=== PATIENT | male | born 1950 | race Caucasian/White ===

== ENCOUNTER 2019-12-11 10:54 | Emergency (ER) | payer MEDICARE, OTHER ==
[2019-12-11] MEDS ORDERED: Sodium Chloride 0.9% 10 ML Syringe FLUSH PRN (11:28)
[2019-12-11] MEDS ORDERED: Sodium Chloride 0.9% 2.5 ML Syringe FLUSH PRN (11:28)
[2019-12-11] MEDS ORDERED: Lactated Ringers 1,000 ML IV ONE (11:29)
[2019-12-11] MEDS ORDERED: Acetaminophen 500 MG Tab PO ONE (11:29)
--- NOTE | 2019-12-11 11:43 | EDM.PDOC ---
ED HPI GENERAL MEDICAL PROBLEM - General Chief Complaint: General Stated Complaint: WEAKNESS/CHILLS Time Seen by Provider: 12/11/19 11:06 Source of Information: Reports: Patient, Old Records History Limitations: Reports: No Limitations - History of Present Illness INITIAL COMMENTS - FREE TEXT/NARRATIVE: This is a very pleasant 69-year-old male with a past medical history of hype rtension presenting with infectious symptoms. Patient underwent cataract surgery on 12/05/2019. On the morning of 12/05, patient began developing chills, myalgias, and subjective fevers along with fatigue. About 4 days ago, the patient developed pain to the left forearm and an area of redness over the dorsal surface of the left wrist. He did not have an IV placed there and denies any recent wounds or trauma to the area. Also complains of a sore throat. He continues to feel unwell and had a COVID swab performed 2 days ago which has not resulted yet. He has had multiple episodes of close contact with a friend who was diagnosed with COVID. He denies headache, neck stiffness, chest pain, shortness of breath, cough, hemoptysis, abdominal pain, nausea, vomiting, diarrhea, dysuria, flank pain, lower extremity pain or swelling, or history of prior VTE. ROS: A 10-point review of systems was negative, except as noted in the HPI (or in the ROS section of this note). Past medical history: Reviewed, no additional pertinent history. Surgical history: Reviewed in system, no additional pertinent history. Social history: Reviewed in system, no additional pertinent history. Family history: Reviewed in system, no additional pertinent history. PHYSICAL EXAM Vital signs reviewed. Nursing notes reviewed. Constitutional: Awake, alert, non-distressed. Head: Normocephalic, atraumatic. Eyes: EOMI, conjunctiva normal, no discharge, no scleral icterus. Ears, Nose, Throat: External ears and nose normal, moist oral mucosa. Neck: Supple, full range of motion. No meningeal signs. Cardiovascular: Tachycardic, 2+ radial pulse, capillary refill less than 2 seconds. Pulmonary: normal work of breathing, no accessory muscle use. Abdomen/GI: Soft, nontender, nondistended, no guarding or rigidity, no masses. No CVA tenderness. Musculoskeletal: No deformities. The dorsal surface of the left wrist is erythematous and tender, concerning for cellulitis. No effusion noted to the left wrist. Integumentary: Appropriate color for ethnicity, warm, dry, no pallor or jaundice, no rash. Neurologic: Alert, answering questions appropriately, normal speech, no facial droop, moving all extremities well. Psychiatric: Appropriate mood and affect, normal thought process. left wrist to left elbow area Pain Score (Numeric/FACES): 8 - Related Data Allergies Allergy/AdvReac Type Severity Reaction Status Date / Time No Known Allergies Allergy Verified 12/11/19 11:10 Home Meds: Home Meds Acetaminophen [Acetaminophen Extra Strength] 500 - 1,000 mg PO Q6H PRN #30 tablet 12/11/19 [Rx] Naproxen 1 - 2 tab PO DAILY PRN 12/11/19 [History] cephALEXin [Keflex] 500 mg PO QID 7 Days #28 capsule 12/11/19 [Rx] lisinopriL [Lisinopril] 20 mg PO DAILY 12/11/19 [History] Past Medical History - Infectious Disease History Infectious Disease History: Reports: Chicken Pox, Measles - Past Surgical History HEENT Surgical History: Reports: Cataract Surgery Musculoskeletal Surgical History: Reports: Knee Replacement, Other (See Below) Other Musculoskeletal Surgeries/Procedures:: SLACC to L wrist Social & Family History - Family History Family Medical History: Noncontributory - Tobacco Use Smoking Status *Q: Never Smoker - Alcohol Use Days Per Week of Alcohol Use: 7 Number of Drinks Per Day: 6 Total Drinks Per Week: 42 - Recreational Drug Use Recreational Drug Use: No ED ROS GENERAL - Review of Systems Review Of Systems: See Below ED EXAM, GENERAL - Physical Exam Exam: See Below Course - Vital Signs Text/Narrative:: 69-year-old male presenting with infectious symptoms and left upper extremity pain. Differential diagnosis includes but is not limited to: Cellulitis, septic arthritis, COVID-19, influenza, acute viral syndrome, bacteremia, sepsis, severe sepsis, pneumonia, UTI, pyelonephritis, intra-abdominal infection, etc. Pursued a broad work-up including blood cultures, labs, urinalysis, x-rays of left wrist and chest, COVID testing. These were largely unrevealing. CBC shows normal cell lines. No leukocytosis. INR and lactate are normal. Chemistry panel shows mild hyponatremia and mildly low carbon dioxide. Renal function is normal. Total bilirubin mildly elevated at 1.7. CRP is elevated at 20.30. Troponin is negative. Urinalysis shows trace protein but no blood or evidence of infection. COVID PCR testing is negative. Influenza test is negative. Chest x-ray clear. X-rays of the left wrist demonstrate soft tissue swelling. Radiologist made no mention of any effusion but I did not appreciate any on my read. I did contact the radiology service ([facility]) to try to get the radiologist to comment about the presence or lack of a wrist joint or effusion but they were unreachable by phone. I have a low suspicion for septic arthritis. Otherwise the infecitous work-up is essentially negative. The patient has no leukocytosis and is not tachycardic. He is remained hemodynamically stable and looks nontoxic. It does look like he has mild cellulitis over the left wrist but I have a low suspicion for septic arthritis given lack of an effusion on x- rays. Range of motion is normal as well. COVID testing is negative but we discussed the limitations including the possibility of a false negative test and we discussed that he should stay home if he is feeling unwell. His CRP elevation is nonspecific and could be explained by the cellulitis. I am going to prescribe a one-week course of Keflex along with some Tylenol. We are going to have him follow-up with his family doctor in the next few days for reevaluation. We also talked about his elevated total bilirubin which can be reevaluated by his PCP, it could be up due to an acute viral infectious process (he does have some vague viral type symptoms). Plan: Patient is stable to discharge home with outpatient primary care clinic follow-up with oral antibiotics and acetaminophen. Strict emergency department return precautions were provided, patient indicated understanding. All questions were answered prior to departure. Discharged in good condition. Last Recorded V/S: Last Vital Signs Temp 37.3 C 12/11/19 15:11 Pulse 91 12/11/19 15:11 Resp 16 12/11/19 15:11 BP 140/93 H 12/11/19 15:11 Pulse Ox 96 12/11/19 15:11 - Orders/Labs/Meds Orders: Active Orders 24 hr Category Date Time Status CULTURE BLOOD [BC] Stat Lab 12/11/19 12:12 Received CULTURE BLOOD [BC] Stat Lab 12/11/19 12:40 Received Blood Culture x2 Reflex Set [OM.PC] Stat Oth 12/11/19 11:28 Ordered Isolation [COMM] Routine Oth 12/11/19 11:29 Active Pulse Oximetry Continuous Monitoring [OM.PC] Routine Oth 12/11/19 11:28 Ordered Saline Lock Insert [OM.PC] Stat Oth 12/11/19 11:28 Ordered Severe Sepsis Onset Time [OM.PC] Stat Oth 12/11/19 11:28 Ordered Labs: Laboratory Tests 12/11/19 12/11/19 12/11/19 Range/Units 11:20 11:38 12:12 WBC 8.76 (4.0-11.0) K/uL RBC 3.90 L (4.50-5.90) M/uL Hgb 13.8 (13.0-17.0) g/dL Hct 40.3 (38.0-50.0) % MCV 103.3 H (80.0-98.0) fL MCH 35.4 H (27.0-32.0) pg MCHC 34.2 (31.0-37.0) g/dL RDW Std Deviation 49.1 (28.0-62.0) fl RDW Coeff of Christopher 13 (11.0-15.0) % Plt Count 159 (150-400) K/uL MPV 9.90 (7.40-12.00) fL Neut % (Auto) 72.8 (48.0-80.0) % Lymph % (Auto) 10.2 L (16.0-40.0) % [place] % (Auto) 16.8 H (0.0-15.0) % Eos % (Auto) 0.1 (0.0-7.0) % Baso % (Auto) 0.1 (0.0-1.5) % Neut # (Auto) 6.4 H (1.4-5.7) K/uL Lymph # (Auto) 0.9 (0.6-2.4) K/uL [place] # (Auto) 1.5 H (0.0-0.8) K/uL Eos # (Auto) 0.0 (0.0-0.7) K/uL Baso # (Auto) 0.0 (0.0-0.1) K/uL Nucleated RBC % 0.0 /100WBC Nucleated RBCs # 0 K/uL INR Lactate (0.20-2.00) mmol/L Sodium (136-148) mmol/L Potassium (3.5-5.1) mmol/L Chloride (98-107) mmol/L Carbon Dioxide (21.0-32.0) mmol/L BUN (7.0-18.0) mg/dL Creatinine (0.8-1.3) mg/dL Est Cr Clr Drug Dosing mL/min Estimated GFR (MDRD) ml/min Glucose (74-106) mg/dL Calcium (8.5-10.1) mg/dL Total Bilirubin (0.2-1.0) mg/dL AST (15-37) IU/L ALT (14-63) IU/L Alkaline Phosphatase (46-116) U/L Troponin I (0.000-0.056) ng/mL C-Reactive Protein (0.00-0.90) mg/dL Total Protein (6.4-8.2) g/dL Albumin (3.4-5.0) g/dL Globulin (2.6-4.0) g/dL Albumin/Globulin Ratio (0.9-1.6) Urine Color DARK YELLOW Urine Appearance CLEAR Urine pH 6.0 (5.0-8.0) Ur Specific [place] 1.020 (1.001-1.035) Urine Protein TRACE H (NEGATIVE) mg/dL Urine Glucose (UA) NEGATIVE (NEGATIVE) mg/dL Urine Ketones NEGATIVE (NEGATIVE) mg/dL Urine Occult Blood NEGATIVE (NEGATIVE) Urine Nitrite NEGATIVE (NEGATIVE) Urine Bilirubin NEGATIVE (NEGATIVE) Urine Urobilinogen 2.0 H (<2.0) EU/dL Ur Leukocyte Esterase NEGATIVE (NEGATIVE) Urine RBC NONE SEEN (0-2/HPF) Urine WBC NONE SEEN (0-5/HPF) Ur Epithelial Cells RARE (NONE-FEW) Urine Bacteria NOT SEEN (NEGATIVE) Urine Mucus LIGHT (NONE-MOD) SARS-CoV-2 RNA (DON) NEGATIVE (NEGATIVE) 12/11/19 12/11/19 12/11/19 Range/Units 12:12 12:12 12:12 WBC (4.0-11.0) K/uL RBC (4.50-5.90) M/uL Hgb (13.0-17.0) g/dL Hct (38.0-50.0) % MCV (80.0-98.0) fL MCH (27.0-32.0) pg MCHC (31.0-37.0) g/dL RDW Std Deviation (28.0-62.0) fl RDW Coeff of Christopher (11.0-15.0) % Plt Count (150-400) K/uL MPV (7.40-12.00) fL Neut % (Auto) (48.0-80.0) % Lymph % (Auto) (16.0-40.0) % [place] % (Auto) (0.0-15.0) % Eos % (Auto) (0.0-7.0) % Baso % (Auto) (0.0-1.5) % Neut # (Auto) (1.4-5.7) K/uL Lymph # (Auto) (0.6-2.4) K/uL [place] # (Auto) (0.0-0.8) K/uL Eos # (Auto) (0.0-0.7) K/uL Baso # (Auto) (0.0-0.1) K/uL Nucleated RBC % /100WBC Nucleated RBCs # K/uL INR 1.05 Lactate 1.1 (0.20-2.00) mmol/L Sodium 130 L (136-148) mmol/L Potassium 3.8 (3.5-5.1) mmol/L Chloride 97 L (98-107) mmol/L Carbon Dioxide 20.5 L (21.0-32.0) mmol/L BUN 18 (7.0-18.0) mg/dL Creatinine 1.2 (0.8-1.3) mg/dL Est Cr Clr Drug Dosing 70.32 mL/min Estimated GFR (MDRD) 59.9 ml/min Glucose 95 (74-106) mg/dL Calcium 8.4 L (8.5-10.1) mg/dL Total Bilirubin 1.7 H (0.2-1.0) mg/dL AST 34 (15-37) IU/L ALT 50 (14-63) IU/L Alkaline Phosphatase 92 (46-116) U/L Troponin I < 0.050 (0.000-0.056) ng/mL C-Reactive Protein 20.30 H (0.00-0.90) mg/dL Total Protein 7.0 (6.4-8.2) g/dL Albumin 2.8 L (3.4-5.0) g/dL Globulin 4.2 H (2.6-4.0) g/dL Albumin/Globulin Ratio 0.7 L (0.9-1.6) Urine Color Urine Appearance Urine pH (5.0-8.0) Ur Specific [place] (1.001-1.035) Urine Protein (NEGATIVE) mg/dL Urine Glucose (UA) (NEGATIVE) mg/dL Urine Ketones (NEGATIVE) mg/dL Urine Occult Blood (NEGATIVE) Urine Nitrite (NEGATIVE) Urine Bilirubin (NEGATIVE) Urine Urobilinogen (<2.0) EU/dL Ur Leukocyte Esterase (NEGATIVE) Urine RBC (0-2/HPF) Urine WBC (0-5/HPF) Ur Epithelial Cells (NONE-FEW) Urine Bacteria (NEGATIVE) Urine Mucus (NONE-MOD) SARS-CoV-2 RNA (DON) (NEGATIVE) Meds: Medications Discontinued Medications Generic Name Dose Route Start Last Admin Trade Name Freq PRN Reason Stop Dose Admin Acetaminophen 1,000 mg 12/11/19 11:29 12/11/19 12:37 Tylenol Extra Strength PO 12/11/19 11:30 1,000 mg ONETIME ONE Administration Lactated Ringer's 1,000 mls @ 999 mls/hr 12/11/19 11:29 12/11/19 12:37 Ringers, Lactated IV 12/11/19 12:29 999 mls/hr .BOLUS ONE Administration Sodium Chloride 10 ml 12/11/19 11:28 12/11/19 12:37 Saline Flush FLUSH 10 ml ASDIRECTED PRN Administration Keep Vein Open Sodium Chloride 2.5 ml 12/11/19 11:28 12/11/19 12:37 Saline Flush FLUSH 2.5 ml ASDIRECTED PRN Administration Keep Vein Open Departure - Departure Time of Disposition: 15:03 Disposition: Home, Self-Care 01 Condition: Good Clinical Impression: Cellulitis of left wrist, Elevated bilirubin - Discharge Information *PRESCRIPTION DRUG MONITORING PROGRAM REVIEWED*: Not Applicable *COPY OF PRESCRIPTION DRUG MONITORING REPORT IN PATIENT AMANDA: Not Applicable Prescriptions: Acetaminophen [Acetaminophen Extra Strength] 500 - 1,000 mg PO Q6H PRN #30 tablet PRN Reason: Pain (Mild 1-3) cephALEXin [Keflex] 500 mg PO QID 7 Days #28 capsule Instructions: Cellulitis, Adult Referrals: Jannette Marinelli DO [Primary Care Provider] - 3 Days (For follow-up of cellulitis and for recheck of total bilirubin.) Forms: ED Department Discharge Additional Instructions: You were seen in the emergency department for left wrist pain and swelling along with chills and feeling unwell. I believe that you have a mild skin infection of your left wrist called cellulitis. This is treated by oral antibiotics for a week. I am also going to prescribe some Tylenol. X-rays of your chest are normal. Your COVID test is negative. Your blood work is reassuring except your bilirubin level, a liver test, was mildly elevated. This can be nonspecific but needs to be rechecked by your primary doctor in the next few weeks to be sure that it comes back down to normal. It is possible that you have COVID because the test is not 100% accurate. If you are feeling unwell you should stay home until your symptoms have gone away for at least 24 hours. Warning signs to come back to the ER include fever of 100.4 higher, chills, shortness of breath, chest pain, repeated vomiting, or any other new or concerning symptoms. Please return the emergency department immediately if your symptoms worsen or if you feel worse. Thank you for choosing the [facility] emergency department in [place] for your medical needs today. It was a pleasure caring for you. The following information is given to patients seen in the emergency department who are being discharged. This information is to outline your options for follow-up care. We provide all patients seen in our emergency department with a follow-up referral. The need for follow-up, as well as the timing and circumstances, are variable depending upon the specifics of your emergency department visit. If you don't have a primary care physician on staff, we will provide you with a referral. We always advise you to contact your personal physician following an emergency department visit to inform them of the circumstance of the visit and for follow-up with them and/or the need for any referrals to a consulting specialist. The emergency department will also refer you to a specialist when appropriate. This referral assures that you have the opportunity for follow-up care with a specialist. All of these measure are taken in an effort to provide you with optimal care, which includes your follow-up. Under all circumstances we always encourage you to contact your private physician who remains a resource for coordinating your care. When calling for follow-up care, please make the office aware that this follow-up is from your recent emergency room visit. If for any reason you are refused follow-up, please contact the [facility] Emergency Department at and asked to speak to the emergency department charge nurse. If you do not have a primary care physician that is caring for you, you can contact these clinics below to set up an appointment to establish care: [facility] - Primary Care [address] [place] [id number] [address] Sepsis Event Note (ED) - Evaluation Sepsis Screening Result: Possible Sepsis Risk - Focused Exam Vital Signs: Vital Signs Temp Temp Pulse Resp BP Pulse Ox 12/11/19 15:11 37.3 C 91 16 140/93 H 96 12/11/19 13:47 91 128/77 95 12/11/19 12:24 94 152/91 H 95 12/11/19 11:06 37.4 C 102 H 18 136/92 H 99 - My Orders Last 24 Hours: My Active Orders 12/11/19 11:28 Blood Culture x2 Reflex Set [OM.PC] Stat Pulse Oximetry Continuous Monitoring [OM.PC] Routine Saline Lock Insert [OM.PC] Stat Severe Sepsis Onset Time [OM.PC] Stat 12/11/19 11:29 Isolation [COMM] Routine 12/11/19 12:12 CULTURE BLOOD [BC] Stat 12/11/19 12:40 CULTURE BLOOD [BC] Stat - Assessment/Plan Last 24 Hours: My Active Orders 12/11/19 11:28 Blood Culture x2 Reflex Set [OM.PC] Stat Pulse Oximetry Continuous Monitoring [OM.PC] Routine Saline Lock Insert [OM.PC] Stat Severe Sepsis Onset Time [OM.PC] Stat 12/11/19 11:29 Isolation [COMM] Routine 12/11/19 12:12 CULTURE BLOOD [BC] Stat 12/11/19 12:40 CULTURE BLOOD [BC] Stat
[2019-12-11 12:50] LABS: BLOOD UREA NITROGEN,BUN 18 mg/dL (7.0-18.0); CARBON DIOXIDE,CO2 20.5 mmol/L (21.0-32.0); CHLORIDE,CL 97 mmol/L (98-107); GLUCOSE RANDOM 95 mg/dL (74-106); POTASSIUM,K 3.8 mmol/L (3.5-5.1); SODIUM,NA 130 mmol/L (136-148)
--- NOTE | 2019-12-11 13:37 | CR ---
Indication: Fever. Sepsis. Technique: AP portable view of the chest. Comparison: None Findings: Heart is normal in size. The lungs are clear. No infiltrate, pleural effusion, or pneumothorax is identified. Impression: No acute cardiopulmonary process. Dictated by Shanae Camarillo MD @ Dec 11 2019 1:35PM Signed by Dr. Shanae Camarillo @ Dec 11 2019 1:36PM
--- NOTE | 2019-12-11 13:39 | CR ---
Indication: Left wrist pain/swelling. Evaluate for effusion. Technique: Three views of the left wrist. Comparison: April 01, 2018. Findings: Degenerative changes of the left wrist are identified. Potential soft tissue swelling is identified posteriorly. Bone cyst are identified within the scaphoid. Chondrocalcinosis is identified at the ulnar carpal joint space. No fracture or subluxation is identified. Impression: Soft tissue swelling probably laterally and posteriorly. Degenerative change. Dictated by Shanae Camarillo MD @ Dec 11 2019 1:36PM Signed by Dr. Shanae Camarillo @ Dec 11 2019 1:37PM
== END 2019-12-11 15:11 | disposition home or self-care (01) ==
LOC: MW.ED 10:54
DX: L03.114 Cellulitis of left upper limb (principal); E80.6 Other disorders of bilirubin metabolism; I10 Essential (primary) hypertension; R00.0 Tachycardia, unspecified; Z20.828 Contact with and (suspected) exposure to other viral communicable diseases; Z79.899 Other long term (current) drug therapy
CPT/HCPCS: 71045; 73110; 80053; 81001; 83605; 84484; 85025; 85610; 86140; 87040; 87804; 99283; A9270; J7120; U0002

== ENCOUNTER 2021-12-19 07:54 | Emergency (ER) | payer MEDICARE, OTHER ==
[2021-12-19 09:55] LABS: CARBON DIOXIDE,CO2 22.7 mmol/L (21.0-32.0); POTASSIUM,K 4.1 mmol/L (3.5-5.1)
[2021-12-19 11:36] LABS: CORONAVIRUS COVID-19 NAA NEGATIVE (NEGATIVE); INFLUENZA A NAA NEGATIVE (NEGATIVE); INFLUENZA B NAA NEGATIVE (NEGATIVE)
[2021-12-19] MEDS ORDERED: Doxycycline 100 MG Cap PO STA (11:41)
== END 2021-12-19 12:11 | disposition home or self-care (01) ==
LOC: MW.ED 07:54
DX: J18.9 Pneumonia, unspecified organism (principal); Z20.822 Contact with and (suspected) exposure to COVID-19
CPT/HCPCS: 0240U; 36415; 71045; 80053; 83605; 83735; 83880; 84484; 85025; 85610; 93005; 99285; A9270

== ENCOUNTER 2024-01-25 06:23 | Day surgery (SDC) | payer MEDICARE, OTHER ==
[2024-01-25] MEDS: Lactated Ringers 1,000 ML IV SCH (07:01)
[2024-01-25] MEDS ORDERED: propofoL 500 MG/50 ML 50 ML ONE (07:23)
[2024-01-25] MEDS ORDERED: dexmedeTOMIDine HCl 200 MCG/2 ML SDV ONE (07:24)
[2024-01-25] MEDS ORDERED: Water For Injection, Sterile 20 ML ONE (07:24)
[2024-01-25] MEDS ORDERED: Ketamine HCL/NACL, ISO-OSM 50 MG/5 ML Syringe ONE (07:40)
[2024-01-25] MEDS ORDERED: fentaNYL 100 MCG/2 ML SDV ONE (08:03)
[2024-01-25] MEDS ORDERED: ePHEDrine 50 MG/ML SDV ONE (08:03)
[2024-01-25] MEDS ORDERED: Propofol 200 MG/20 ML SDV ONE (08:10)
[2024-01-25] MEDS ORDERED: Phenylephrine HCl In 0.9% NaCl 1 MG/10 ML Syringe ONE (08:23)
[2024-01-25] MEDS ORDERED: Lactated Ringers 1,000 ML IV SCH (08:45)
== END 2024-01-25 10:12 | disposition home or self-care (01) ==
LOC: MW.SDS 06:23
PROVIDERS: ATTEND Surgery
DX: D12.5 Benign neoplasm of sigmoid colon (principal); K21.00 Gastro-esophageal reflux disease with esophagitis, without bleeding; K29.50 Unspecified chronic gastritis without bleeding; K22.70 Barrett's esophagus without dysplasia; K57.30 Diverticulosis of large intestine without perforation or abscess without bleeding; I10 Essential (primary) hypertension; D64.9 Anemia, unspecified
CPT/HCPCS: 43239; 45385; 88305; 88342; J2371; J2704; J3010; J7120; J3490